=== PATIENT | male | born 1985 | race Two or more races ===

== ENCOUNTER 2017-01-22 02:59 | Emergency (ER) | payer OTHER ==
[~2017-01-22] VITALS: Ht 167.6 cm; Wt 104.3 kg
[2017-01-22 03:13] VITALS: BP 142/90
[2017-01-22 04:15] LABS: BASO # 0.1 x10^3/uL (0.0-0.2); BASO % 1 % (0-3); EOS % 5 % (0-3); HEMATOCRIT 42.8 % (39.0-53.0); HEMOGLOBIN 14.7 g/dL (13.0-17.5); LYMPH # 3.6 x10^3/uL (1.0-4.8); LYMPH % 29 % (24-48); MEAN CORPUSCULAR HEMOGLOBIN 30 pg (25-35); MEAN CORPUSCULAR HGB CONC 34 g/dL (31-37); MEAN CORPUSCULAR VOLUME 88 fL (79-100); MONO % 10 % (0-9); NEUT % 56 % (31-73); PLATELET COUNT 353 x10^3/uL (140-400); RED BLOOD COUNT 4.87 x10^6/uL (4.30-5.70); RED CELL DISTRIBUTION WIDTH 12.7 % (11.5-14.5); WHITE BLOOD COUNT 12.4 x10^3/uL (4.0-11.0)
[2017-01-22 04:26] LABS: CALCIUM 8.5 mg/dL (8.5-10.1); GFR 88.3; POTASSIUM 3.7 mmol/L (3.5-5.1)
[2017-01-22 04:31] LABS: ALBUMIN 3.5 g/dL (3.4-5.0); ALBUMIN/GLOBULIN RATIO 0.8 (1.0-1.7); TOTAL BILIRUBIN 0.6 mg/dL (0.2-1.0); TOTAL PROTEIN 7.7 g/dL (6.4-8.2)
--- NOTE | 2017-01-22 05:29 | PHYS DOC ---
Past Medical History Past Medical History: Asthma Past Surgical History: Other Additional Past Surgical Histo: RIGHT KNEE SURGERY Alcohol Use: None Drug Use: None Adult General Chief Complaint Chief Complaint: SHORTNESS OF BREATH HPI HPI Patient is a 31 year old [f__sex] who presents with [] Review of Systems Review of Systems Constitutional: Denies fever or chills [] Eyes: Denies change in visual acuity, redness, or eye pain [] HENT: Denies nasal congestion or sore throat [] Respiratory: Denies cough or shortness of breath [] Cardiovascular: No additional information not addressed in HPI [] GI: Denies abdominal pain, nausea, vomiting, bloody stools or diarrhea [] : Denies dysuria or hematuria [] Musculoskeletal: Denies back pain or joint pain [] Integument: Denies rash or skin lesions [] Neurologic: Denies headache, focal weakness or sensory changes [] Endocrine: Denies polyuria or polydipsia [] Allergies Allergies Allergies Coded Allergies Type Severity Reaction Last Updated Verified No Known Drug Allergies 09/17/14 No Physical Exam Physical Exam Well appearing 31-year-old male smiling comfortable playing with his baby in bed. Mild chest wall tenderness on the left easily reproducible with light palpation. No bony tenderness. No skin changes. No ecchymosis or subcutaneous air. Remainder of exam is completely benign with a normal respiratory rate and pulse ox. Constitutional: Well developed, well nourished, no acute distress, non-toxic appearance. [] HENT: Normocephalic, atraumatic, bilateral external ears normal, oropharynx moist, no oral exudates, nose normal. [] Eyes: PERRLA, EOMI, conjunctiva normal, no discharge. [] Neck: Normal range of motion, no tenderness, supple, no stridor. [] Cardiovascular:Heart rate regular rhythm, no murmur [] Lungs & Thorax: Bilateral breath sounds clear to auscultation [] Abdomen: Bowel sounds normal, soft, no tenderness, no masses, no pulsatile masses. [] Skin: Warm, dry, no erythema, no rash. [] Back: No tenderness, no CVA tenderness. [] Extremities: No tenderness, no cyanosis, no clubbing, ROM intact, no edema. [] Neurologic: Alert and oriented X 3, normal motor function, normal sensory function, no focal deficits noted. [] Psychologic: Affect normal, judgement normal, mood normal. [] Current Patient Data Vital Signs Vital Signs Date Time Temp Pulse Resp B/P (MAP) Pulse Ox O2 Delivery O2 Flow Rate FiO2 01/22/17 03:13 98.0 82 20 142/90 (107) 99 Room Air 98.0 Lab Values Laboratory Tests Test 01/22/17 03:15 White Blood Count 12.4 x10^3/uL (4.0-11.0) H Red Blood Count 4.87 x10^6/uL (4.30-5.70) Hemoglobin 14.7 g/dL (13.0-17.5) Hematocrit 42.8 % (39.0-53.0) Mean Corpuscular Volume 88 fL (79-100) Mean Corpuscular Hemoglobin 30 pg (25-35) Mean Corpuscular Hemoglobin Concent 34 g/dL (31-37) Red Cell Distribution Width 12.7 % (11.5-14.5) Platelet Count 353 x10^3/uL (140-400) Neutrophils (%) (Auto) 56 % (31-73) Lymphocytes (%) (Auto) 29 % (24-48) Monocytes (%) (Auto) 10 % (0-9) H Eosinophils (%) (Auto) 5 % (0-3) H Basophils (%) (Auto) 1 % (0-3) Neutrophils # (Auto) 6.9 x10^3uL (1.8-7.7) Lymphocytes # (Auto) 3.6 x10^3/uL (1.0-4.8) Monocytes # (Auto) 1.2 x10^3/uL (0.0-1.1) H Eosinophils # (Auto) 0.6 x10^3/uL (0.0-0.7) Basophils # (Auto) 0.1 x10^3/uL (0.0-0.2) Sodium Level 140 mmol/L (136-145) Potassium Level 3.7 mmol/L (3.5-5.1) Chloride Level 104 mmol/L (98-107) Carbon Dioxide Level 27 mmol/L (21-32) Anion Gap 9 (6-14) Blood Urea Nitrogen 13 mg/dL (8-26) Creatinine 1.0 mg/dL (0.7-1.3) Estimated GFR (Cockcroft-Gault) 88.3 BUN/Creatinine Ratio 13 (6-20) Glucose Level 270 mg/dL (70-99) H Calcium Level 8.5 mg/dL (8.5-10.1) Total Bilirubin 0.6 mg/dL (0.2-1.0) Aspartate Amino Transferase (AST) 58 U/L (15-37) H Alanine Aminotransferase (ALT) 120 U/L (16-63) H Alkaline Phosphatase 144 U/L (46-116) H Troponin I Quantitative < 0.017 ng/mL (0.000-0.055) XO-Zmy-Y-Type Natriuretic Peptide 41 pg/mL (0-124) Total Protein 7.7 g/dL (6.4-8.2) Albumin 3.5 g/dL (3.4-5.0) Albumin/Globulin Ratio 0.8 (1.0-1.7) L Laboratory Tests 01/22/17 03:15 Laboratory Tests 01/22/17 03:15 EKG EKG [] Radiology/Procedures Radiology/Procedures [] Course & Med Decision Making Course & Med Decision Making Pertinent Labs and Imaging studies reviewed. (See chart for details) [] Dragon Disclaimer Dragon Disclaimer This electronic medical record was generated, in whole or in part, using a voice recognition dictation system. Departure Departure Impression: Primary Impression: Chest wall pain Disposition: 01 HOME, SELF-CARE Condition: STABLE Referrals: NO PCP (PCP) Patient Instructions: Chest Wall Pain Additional Instructions: It appears that you have of chest wall soreness and pain today. Take ibuprofen 800 mg every 6 hours as needed for pain. Do warm soaks, warm compresses and gentle stretches. Your workup today was unremarkable including labs x-ray of the chest and EKG. You have no clinical evidence of heart disease and other than being male you have no cardiac risk factors. Follow-up with your doctor in 1-2 days for further workup and treatment as needed . Return immediately for new severe worsening symptoms, specifically for exertional chest pain. NICHOLAS MONTERROSO MD Jan 22, 2017 05:29
--- NOTE | 2017-01-22 06:46 | EKG ---
[facility] [address] [place] [address] Test Date: 2017-01-22 Test Time: 03:06:11 Pat Name: JALEESA WILSON Department: Room: Gender: M [employer]: : 1985 Requested By: NICHOLAS MONTERROSO Order Number: [id number] Reading MD: Bibiana Dangelo Measurements Intervals [place] Rate: 74 P: 33 [place]: 120 QRS: 16 QRSD: 86 T: 6 QT: 368 QTc: 413 Interpretive Statements SINUS RHYTHM NORMAL EKG Electronically Signed On 01-23-2017 14:15:42 CDT by Bibiana Dangelo
--- NOTE | 2017-01-22 07:13 | RAD ---
Portable AP upright view CXR: Clinical indications: Chest pain. Comparison: None available. Findings: No acute lung infiltrate or pleural effusion or pulmonary edema or lung mass or pneumothorax is seen. The heart size, pulmonary vasculature, mediastinum and both fifi are unremarkable. Impression: No acute radiographic abnormality is seen.
== END 2017-01-22 05:42 | disposition home or self-care (01) ==
LOC: ER 02:59
DX: R07.89 Other chest pain (principal); J45.909 Unspecified asthma, uncomplicated
CPT/HCPCS: 36415; 71010; 80053; 83880; 84484; 85027; 93005; 99285-25

== ENCOUNTER 2020-01-01 21:54 | Emergency (ER) | payer SELFPAY ==
[~2020-01-01] VITALS: Ht 167.6 cm; Wt 97.0 kg
[2020-01-01 22:20] VITALS: BP 148/81
--- NOTE | 2020-01-01 23:27 | RAD ---
Study: 1. CR FOOT LEFT 3V 2. CR ANKLE LEFT 3V Indication: Crush injury. Left foot pain. Comparison: None. Findings: No acute fracture or traumatic malalignment seen throughout the foot. As best seen on the lateral view at the ankle, moderate laterally along the ventral margin of the tibial plafond. The ankle mortise is symmetric. Mild soft tissue heterogeneity anterior and posterior to the ankle joint which could possibly represent an ankle joint effusion. Impression: Faint osseous irregularity along the anterior margin of the tibial plafond. Possible radiographic manifestations of an ankle joint effusion. The findings could be posttraumatic in etiology if there is pain referrable to this region though could be degenerative as well. No fracture is identified throughout the left foot. Electronically signed by: PETRA HOBBS MD (01/01/2020 11:24 PM) [id number]
[2020-01-02] MEDS ORDERED: HYDR-3164 PO (00:23)
--- NOTE | 2020-01-02 00:23 | PHYS DOC ---
Past Medical History Past Medical History: Asthma Smoking Status: Never Smoker Alcohol Use: None General Adult EDM: Chief Complaint: ANKLE PROBLEM HPI: HPI: Patient is a 34 year old male who presents with complaint of injury to his left ankle after he sustained a glancing blow to the left ankle from a trailer hitch. Patient rates pain is moderate, especially when he bears weight. He denies any other injuries. [] Review of Systems: Review of Systems: Constitutional: Denies fever or chills. [] Respiratory: Denies cough or shortness of breath. [] Cardiovascular: Denies chest pain or edema. [] Musculoskeletal: Complains of left ankle swelling and pain. [] Integument: Denies rash. [] Heart Score: Risk Factors: Risk Factors: DM, Current or recent (<one month) smoker, HTN, HLP, family history of CAD, obesity. Risk Scores: Score 0 - 3: 2.5% MACE over next 6 weeks - Discharge Home Score 4 - 6: 20.3% MACE over next 6 weeks - Admit for Clinical Observation Score 7 - 10: 72.7% MACE over next 6 weeks - Early Invasive Strategies Physical Exam: PE: Constitutional: Well developed, well nourished, no acute distress, non-toxic appearance. [] Cardiovascular: Regular rate and rhythm [] Lungs & Thorax: Bilateral breath sounds clear to auscultation [] Extremities: Examination of left ankle demonstrates mild soft tissue swelling around the lateral malleolus with tenderness to palpation around the lateral malleolus as well as the fifth metatarsal. [] Neurologic: Alert and oriented X 3, no focal deficits noted. [] Current Patient Data: Vital Signs: Vital Signs Date Time Temp Pulse Resp B/P (MAP) Pulse Ox O2 Delivery O2 Flow Rate FiO2 01/01/20 22:20 98.6 95 18 148/81 (103) 99 Room Air 98.6 EKG: EKG: [] Radiology/Procedures: Radiology/Procedures: [] Impression: Indication: Crush injury. Left foot pain. Comparison: None. Findings: No acute fracture or traumatic malalignment seen throughout the foot. As best seen on the lateral view at the ankle, moderate laterally along the ventral margin of the tibial plafond. The ankle mortise is symmetric. Mild soft tissue heterogeneity anterior and posterior to the ankle joint which could possibly represent an ankle joint effusion. Impression: Faint osseous irregularity along the anterior margin of the tibial plafond. Possible radiographic manifestations of an ankle joint effusion. The findings could be posttraumatic in etiology if there is pain referrable to this region though could be degenerative as well. No fracture is identified throughout the left foot. Electronically signed by: PETRA HOBBS MD (01/01/2020 11:24 PM) [id number] Course & Med Decision Making: Course & Med Decision Making Pertinent Labs and Imaging studies reviewed. (See chart for details) [] Dragon Disclaimer: Dragon Disclaimer: This electronic medical record was generated, in whole or in part, using a voice recognition dictation system. Departure Departure Impression: Primary Impression: Contusion of left ankle, initial encounter Additional Impression: Contusion of left foot, initial encounter Disposition: 01 HOME, SELF-CARE Condition: STABLE Referrals: NO PCP (PCP) Patient Instructions: Contusion Scripts Hydrocodone/Apap 5-325 (NORCO 5-325 TABLET) 1 Each Tablet 1-2 EACH PO PRN Q6HRS PRN for PAIN, #15 as needed for pain Prov: STEWART MALDONADO Jr. DO 01/02/20 Justicifation of Admission Dx: Justifications for Admission: Justification of Admission Dx: N/A STEWART MALDONADO Jr. DO Jan 02, 2020 00:23
== END 2020-01-02 00:41 | disposition home or self-care (01) ==
LOC: ER 21:54 → MERGE 21:54 → ER 01-02 00:41
DX: S90.02XA Contusion of left ankle, initial encounter (principal); S90.32XA Contusion of left foot, initial encounter; J45.909 Unspecified asthma, uncomplicated; W22.8XXA Striking against or struck by other objects, initial encounter; Y93.89 Activity, other specified; Y92.89 Other specified places as the place of occurrence of the external cause; Y99.8 Other external cause status
CPT/HCPCS: 73610; 73630; 99284